=== PATIENT | female | born 1995 | race Caucasian/White ===

== ENCOUNTER 2019-05-02 17:36 | Emergency (ER) | payer MEDICAID ==
[~2019-05-02] VITALS: Ht 149.9 cm; Wt 46.3 kg
[~2019-05-02 17:36] MED LIST: ACET325T33 PO; BACL10TA PO; IBUP-1561 PO
[2019-05-02 18:01] VITALS: BP 108/66; PULSE 99; RESP 18; Ht 149.9 cm; Wt 46.3 kg
== END 2019-05-02 18:26 | disposition home or self-care (01) ==
LOC: E/R 17:36
DX: M54.2 Cervicalgia (principal)
CPT/HCPCS: 99283